=== PATIENT | female | born 1945 | race Hispanic/Latino ===

== ENCOUNTER 2021-07-05 22:11 | Emergency (ER) | payer OTHER ==
[2021-07-05] MEDS ORDERED: NALOXONE HCL 2 MG/2 ML VIAL ONE (22:40)
[2021-07-05 23:20] LABS: Protime INR 1.39
[2021-07-05 23:32] LABS: Absolute Lymphocytes (CBC) 1.4 K/uL (0.7-4.9); Basophils % 0.1 % (0-1.3); Hematocrit 39.6 % (36.0-45.0); Lymphocytes % 7.3 % (15.3-44.8); MPV 7.5 fL (7.6-11.3); RBC Red Blood Cell Count 4.24 M/uL (3.86-4.86)
[2021-07-05] MEDS ORDERED: LORazepam 2 MG/ML VIAL ONE (23:39)
[2021-07-05 23:45] LABS: Albumin 3.3 g/dL (3.4-5.0); Bilirubin Direct 0.5 mg/dL (0-0.2); Bilirubin Total 1.5 mg/dL (0.2-1.0); Magnesium 1.9 mg/dL (1.8-2.4); Potassium 3.1 mmol/L (3.5-5.1); Protein, Total 8.2 g/dL (6.4-8.2)
[2021-07-05 23:51] LABS: Urine Blood 1+ (Negative); Urine Glucose Negative (Negative); Urine Protein 2+ (Negative); Urine Specific Gravity >=1.030 (1.005-1.030)
[2021-07-05 23:52] LABS: Troponin (Emerg Dept Use Only) 18.3 ng/mL (0.0-0.045)
[2021-07-06] MEDS ORDERED: NA CHLORIDE 0.9% 1,000 ML ONE (00:10)
[2021-07-06 00:24] LABS: Arterial Blood Carboxyhemoglob 1.4 % (0-1.5); Blood Gas Oxyhemoglobin 92.7 % (94-97)
[2021-07-06] MEDS ORDERED: CEFEPIME 1 GM/VIAL ONE (00:34)
[2021-07-06] MEDS ORDERED: NA CHLORIDE 0.9% 100 ML ONE (00:34)
[2021-07-06 00:48] LABS: Barbiturates NEGATIVE (NEGATIVE); Benzodiazepines NEGATIVE (NEGATIVE); Cocaine NEGATIVE (NEGATIVE); METHAMPHETAM NEGATIVE (NEGATIVE); Methadone NEGATIVE (NEGATIVE); Opiates POSITIVE (NEGATIVE); Phencyclidine NEGATIVE (NEGATIVE); THC Cannibis NEGATIVE (NEGATIVE)
[2021-07-06 01:15] LABS: SARS-COV-2 RT PCR NEGATIVE (NEGATIVE)
[2021-07-06 01:23] LABS: Urine Amorphous Sediment 1+ /HPF (NONE SEEN); Urine Bacteria >50 /HPF (<20); Urine RBC <5 /HPF (NONE SEEN)
[2021-07-06] MEDS ORDERED: VANCOMYCIN 1 GM/VIAL ONE (01:32)
[2021-07-06] MEDS ORDERED: NA CHLORIDE 0.9% 250 ML ONE (01:33)
--- NOTE | 2021-07-06 02:03 | ER ---
Nurse's Notes [facility] Name: Gabrielle Malik Age: 76 yrs Sex: Female : 1945 Arrival Date: 07/05/2021 Time: 22:13 Bed 3 Private MD: Diagnosis: Other specified sepsis;UTI/ Urinary tract infection, site not specified;Subsequent non-ST elevation (NSTEMI) myocardial infarction Presentation: 07/05 22:10 Method Of Arrival: EMS wg 22:10 Chief complaint: Patient states: Per EMS, they were called to the home to find pt wg responsive to painful stimuli only. EMS states that saw her acting abnormal around 1830pm tonight. Unknown why EMS was not called earlier. EMS states only history of Rheumatoid Arthritis and takes morphine and hydrocodone. Per EMS, pt is normally alert and walks at home. EMS obtained a 20g IV in Right forearm and a BG of 167mg/DL. Initial Sepsis Screen: Does the patient meet any 2 criteria? RR > 20 per min. Altered Mental Status. HR > 90 bpm. Does the patient have a suspected source of infection?. Risk Assessment: Do you want to hurt yourself or someone else? Unable to obtain. Onset of symptoms was July 05, 2021 at 18:30. 22:10 Acuity: RLIEY 2 wg Triage Assessment: 22:10 General: Appears distressed, unkempt, Behavior is Responds to painful stimuli only. . wg Neuro: Level of Consciousness is lethargic, Oriented to none. Respiratory: Airway is patent Trachea midline Respiratory effort is even, unlabored, Respiratory pattern is Kussmaul Breath sounds are clear bilaterally. Historical: - Allergies: 23:50 No Known Allergies; wg - Home Meds: 23:50 Morphine Oral [Active]; Hydrocodone-Acetaminophen Oral [Active]; wg - PMHx: 23:50 Rheumatoid arthritis; wg Screenin:15 Fall Risk IV access (20 points). Mental Status-. wg Assessment: 23:00 Reassessment: EMS IV was lost shortly after arrival to ED. Attempts made to secure a wg peripheral IV and blood were unsuccessful. MARY Golden obtained an 18g midline in the right upper arm with good blood return and flush. 23:54 Reassessment: Pt arrived unresponsive only to pain. Pt seen by MICHAEL Julio upon wg arrival, Pt was given 2mg of Narcan. Pt started moving all extremities in a decorticate nature. Pt opened eyes but did not track or follow any commands. Pt moaning and moving all extremities. Pt taken to CT by RN. 23:55 Reassessment: 18fr. Pyle inserted with good urine return. No complications. Urine sent.wg 07/06 00:21 Reassessment: No changes from previously documented assessment. Patient is alert, wg oriented x 3, equal unlabored respirations, skin warm/dry/pink. At 0015 it was noted that pt has a large collection of fluid in her right upper arm. IV fluids stopped. MICHAEL Julio made aware. 00:21 Reassessment: Pt remains altered and unable to follow commands. at bedside. wg 00:50 Reassessment: 18g. Midline inserted by MARY Chun in the left arm with good blood wg return. Previous midline in Right upper arm removed. Pressure dressing applied. 00:54 Reassessment: Per MICHAEL Julio, decrease IVF to 50ml/hr. Pt received 1.2L of NS while wg in the ED. 01:25 Reassessment: Pt remains responsive to painful stimuli with inward retraction to pain. wg Respirations still Kussmaul in nature. Pt still moving all extremities. Pt's eyes remain closed. Pt had initially soiled herself of bowel and bladder prior to insertion of pyle cath. Pt put in a diaper. Pt noted to have a large dark reddened area, non open, to coccyx approx 3 1/2" in width. Pt repositioned frequently to relieve pressure. Derm:. 01:55 Reassessment: No changes from previously documented assessment. Patient and/or family wg updated on plan of care and expected duration. Pain level reassessed. Per the , he states that he found the patient on the floor Frines morning. States it was unknown if she fell or got tired and layed down. States her mental status has been declining for quite some time. States it was common for her to walk around the house with her walker until she had no energy and would lay on the floor. 02:49 Reassessment: No changes from previously documented assessment. [facility] arrived to take patient to [facility]. Report was given to [facility] and also to RN Obi at [facility] Neuro ICU. Vital Signs: 07/05 22:10 BP 178 / 130; Pulse 132; Resp 30; Temp 97.6; Pulse Ox 99% on R/A; Weight 63.5 kg; wg Height 5 ft. 5 in. (165.10 cm); 22:30 BP 179 / 127; Pulse 137; Resp 30; Pulse Ox 100% on R/A; wg 22:45 BP 161 / 91; Pulse 143; Resp 30; Pulse Ox 100% on R/A; wg 23:00 BP 161 / 107; Pulse 153; Resp 30; Pulse Ox 100% on R/A; wg 23:30 BP 137 / 100; Pulse 136; Resp 28; Pulse Ox 100% on R/A; wg 07/06 00:00 BP 134 / 107; Pulse 28; Resp 28; Pulse Ox 100% on R/A; wg 00:25 BP 154 / 60; Pulse 128; Resp 28; Pulse Ox 100% on R/A; wg 00:45 BP 139 / 80; Pulse 130; Resp 28; Pulse Ox 100% on R/A; wg 01:25 BP 127 / 84; Pulse 114; Resp 28; Pulse Ox 100% on R/A; wg 01:54 BP 147 / 49; Pulse 110; Resp 28; Temp 97.5; Pulse Ox 100% on R/A; wg 02:35 BP 119 / 49; Pulse 106; Resp 26; Pulse Ox 100% on R/A; wg 07/05 22:10 Body Mass Index 23.30 (63.50 kg, 165.10 cm) wg Vitals: 07/05 22:15 Cardiac Rhythm Assessment Sinus tach. wg ED Course: 22:13 Patient arrived in ED. mw2 22:13 Jadiel Julio PA is PHCP. cp 22:13 Sylvie Mcneil MD is Attending Physician. cp 22:15 Patient has correct armband on for positive identification. wg 22:15 audit partner on. Pulse ox on. NIBP on. wg 22:47 CT Head C Spine In Process Unspecified. EDMS 22:55 XRAY Chest (1 view) In Process Unspecified. EDMS 23:23 LFT's Sent. wg 23:23 CBC with Diff Sent. wg 23:23 Basic Metabolic Panel Sent. wg 23:43 Edgar Rick, RN is Primary Nurse. wg 23:50 Triage completed. wg 23:50 Arm band placed on. wg 07/06 00:00 Inserted saline lock: 18 gauge in left upper arm, using aseptic technique. wg 00:29 Influenza Screen (a \\T\\ B) Sent. wg 00:29 COVID-19 : Document "Date of Symptom Onset" if Symptomatic. Sent. wg 01:08 CT Chest, Abdomen, Pelvis - W/Contrast In Process Unspecified. EDMS 01:36 initiated a transfer with Elizabeth from [facility] [place]. [facility] denied due mw2 to capacity. 01:41 initiated a transfer with Tiffany from [facility]. mw2 01:43 initiated a transfer with Xiomara from [facility] Transfer Center. mw2 02:00 No provider procedures requiring assistance completed. wg 02:03 administrative approval given by Xiomara Gomes/ patient has been accepted to [facility] [place] to Mikaela Roldan 8 A 801/Dr. Moran accepted the patient in transfer/ report to be called to [phone]. Administered Medications: 07/05 23:41 Discontinued: NS 0.9% 1000 ml IV at 1 bolus Per protocol; 1000 mL bolus cp 07/06 01:36 Discontinued: NS 0.9% 1000 ml IV at 50 ml/hr continuous cp 07/05 22:20 Drug: NARcan (naloxone) 2 mg Route: IVP; Infused Over: 2 mins; Site: right forearm; wg 22:49 CANCELLED (Physician Discretion): NS 0.9% 500 ml IV at bolus once cp 23:15 Drug: Ativan (LORazepam) 0.5 mg Route: IVP; Infused Over: 2 mins; Site: right upper arm;wg 23:24 Drug: NS 0.9% 1000 ml Route: IV; Rate: 1 bolus; Infused Over: 20 mins; Site: right upper arm; 07/06 00:10 Drug: NS 0.9% (30 ml/kg) 30 ml/kg Route: IV; Rate: bolus; Site: left upper arm; wg 00:30 Drug: Cefepime 1 grams Route: IVPB; Rate: 200 ml/hr; Infused Over: 30 mins; Site: left upper arm; Delivery: Primary tubing; 00:45 Drug: NS 0.9% (30 ml/kg) 1200 ml Route: IV; Rate: bolus; Site: left upper arm; 00:45 Follow up: Response: No adverse reaction; IV Status: Completed infusion; IV Intake: wg 1200ml 01:00 Drug: NS 0.9% 1000 ml Route: IV; Rate: 50 ml/hr; Site: left upper arm; 01:05 Drug: vancoMYCIN 1 grams Route: IVPB; Rate: ml/hr; Infused Over: 2 hrs; Site: left upper arm; 01:40 Drug: NS 0.9% 1000 ml Route: IV; Rate: 100 ml/hr; Site: left upper arm; 02:10 Drug: Heparin ([place] Drip) 12 units/kg/hr - (HEParin 71328 units, D5W 500 ml) {Co-Signature: zoila (Amna Maza RN).} Route: IV; Rate: calculated rate; Site: left upper arm; 02:30 Drug: Heparin (OH-Bolus with thrombolytic) - HEParin 60 units/kg {Co-Signature: mr2 lesly (Jose Golden RN).} Route: IVP; Site: left antecubital; Intake: 00:45 IV: 1200ml; Total: 1200ml. Outcome: 02:02 ER care complete, transfer ordered by . rosa maria 02:56 Transferred by ground EMS [facility]. to [facility], Transfer form completed. X-rays sent w/ patient. 02:57 Patient left the ED. Signatures: Dispatcher [employer] EDMS Jadiel Julio PA PA cp Antunez, Elena, RN RN ea [place], MyKena 2 Edgar Rick RN Amna Golden RN mr2 Corrections: (The following items were deleted from the chart) 07/05 23:51 23:50 Home Meds: Unable to obtain; [facility] 07/06 00:18 00:08 NS 0.9% (30 ml/kg) 30 ml/kg IV at bolus in right upper arm ea :07/05 23:50 General: Appears distressed, unkempt, Behavior is Responds to painful wg stimuli only. . 07/06 00:07/05 23:50 Neuro: Level of Consciousness is lethargic, Oriented to none [facility] 07/06 00:07/05 23:50 Respiratory: Airway is patent Trachea midline Respiratory effort is even, wg unlabored, Respiratory pattern is Kussmaul Breath sounds are clear bilaterally. 07/06 00:31 09 23:58 Reassessment: EMS IV was lost shortly after arrival to ED. Attempts made to wg secure a peripheral IV and blood were unsuccessful. MARY Golden obtained an 18g midline in the right upper arm with good blood return and flush. 07/06 05: 01:55 Reassessment: No changes from previously documented assessment. Patient and/or wg family updated on plan of care and expected duration. Pain level reassessed. Patient is alert, oriented x 3, equal unlabored respirations, skin warm/dry/pink. Per the , he states that he found the patient on the floor Friday morning. States it was unknown if she fell or got tired and layed down. States her mental status has been declining for quite some time. States it was common for her to walk around the house with her walker until she had no energy and would lay on the floor. Patient states symptoms have not improved. : 02:49 Reassessment: No changes from previously documented assessment. Patient is alert, wg oriented x 3, equal unlabored respirations, skin warm/dry/pink. [facility] arrived to take patient to [facility]. Report was given to [facility] and also to RN Obi at [facility] Neuro ICU. Patient states symptoms have not improved. : 00:21 Reassessment: Pt remains altered and unable to follow commands. at bedside. Patient states symptoms have not improved. 01:55 Reassessment: No changes from previously documented assessment. Patient and/or wg family updated on plan of care and expected duration. Pain level reassessed. Per the , he states that he found the patient on the floor Friday morning. States it was unknown if she fell or got tired and layed down. States her mental status has been declining for quite some time. States it was common for her to walk around the house with her walker until she had no energy and would lay on the floor. Patient states symptoms have not improved. 02:49 Reassessment: No changes from previously documented assessment. [facility] arrived to take patient to [facility]. Report was given to [facility] and also to RN Obi at [facility] Neuro ICU. Patient states symptoms have not improved. wg
--- NOTE | 2021-07-06 02:03 | EDPHYS ---
Physician Documentation [facility] Name: Gabrielle Malik Age: 76 yrs Sex: Female : 1945 Arrival Date: 07/05/2021 Time: 22:13 Bed 3 Private MD: ED Physician Sylvie Mcneil HPI: 07/05 22:30 This 76 yrs old Female presents to ER via Unassigned with complaints of cp Altered Mental Status. 22:30 The patient presents with decreased responsiveness. cp 22:30 Onset: The symptoms/episode began/occurred 2 day(s) ago. cp 22:30 Patient's baseline: Neuro: alert and fully oriented, Motor: no deficits, Ambulation: cp walks with assist only, uses walker, Speech: normal. 23:00 reports finding patient on ground morning of 07-04-2021 and patient being too cp weak to get up so he made bedding on floor and patient stayed on floor until morning of 07-05-2021. reports son helped patient onto couch where she remained until he called EMS this evening to bring patient to ED. Historical: - Allergies: 23:50 No Known Allergies; wg - Home Meds: 23:50 Morphine Oral [Active]; Hydrocodone-Acetaminophen Oral [Active]; wg - PMHx: 23:50 Rheumatoid arthritis; wg ROS: 22:35 Neuro: Positive for altered mental status, weakness. cp 22:35 Constitutional: Negative for fever. cp 22:35 Unable to obtain ROS due to altered mental status. Exam: 22:40 Constitutional: The patient appears non-diaphoretic, non-toxic, well developed, well cp nourished, frail. 22:40 Head/Face: Normocephalic, atraumatic. cp 22:40 Eyes: Pupils: equal, round, and reactive to light and accomodation, Conjunctiva: normal, no exudate, no injection, Sclera: no appreciated abnormality, Lids and lashes: appear normal, bilaterally. 22:40 ENT: External ear(s): are unremarkable, Ear canal(s): are normal, clear, TM's: dullness, bilaterally, Mouth: Lips: dry, Oral mucosa: dry, Posterior pharynx: Airway: no evidence of obstruction, patent. 22:40 Neck: ROM/movement: Meningeal signs: are not present, nuchal rigidity, is not appreciated. 22:40 Chest/axilla: Inspection: normal, Palpation: is normal, no crepitus, no tenderness. 22:40 Cardiovascular: Rate: tachycardic, Rhythm: regular, Edema: ankle edema, that is mild, JVD: is not appreciated. 22:40 Respiratory: the patient does not display signs of respiratory distress, Respirations: normal, no use of accessory muscles, no retractions, Breath sounds: bronchial sounds, that are mild, are heard diffusely, decreased breath sounds, are not appreciated, stridor, is not appreciated, wheezing: is not appreciated. 22:40 Abdomen/GI: Inspection: abdomen appears normal, Bowel sounds: active, all quadrants, Palpation: abdomen is soft and non-tender, in all quadrants. 22:40 Musculoskeletal/extremity: Exam is negative for decreased range of motion, deformity. 22:40 Skin: cellulitis, that is mild, on the decubitus area of back, stage 1-2 baseball size pressure ulcer. 22:40 Neuro: Mentation: responsive to pain. 23:25 ECG was reviewed by the Attending Physician. cp Vital Signs: 22:10 BP 178 / 130; Pulse 132; Resp 30; Temp 97.6; Pulse Ox 99% on R/A; Weight 63.5 kg; wg Height 5 ft. 5 in. (165.10 cm); 22:30 BP 179 / 127; Pulse 137; Resp 30; Pulse Ox 100% on R/A; wg 22:45 BP 161 / 91; Pulse 143; Resp 30; Pulse Ox 100% on R/A; wg 23:00 BP 161 / 107; Pulse 153; Resp 30; Pulse Ox 100% on R/A; wg 23:30 BP 137 / 100; Pulse 136; Resp 28; Pulse Ox 100% on R/A; wg 07/06 00:00 BP 134 / 107; Pulse 28; Resp 28; Pulse Ox 100% on R/A; wg 00:25 BP 154 / 60; Pulse 128; Resp 28; Pulse Ox 100% on R/A; wg 00:45 BP 139 / 80; Pulse 130; Resp 28; Pulse Ox 100% on R/A; wg 01:25 BP 127 / 84; Pulse 114; Resp 28; Pulse Ox 100% on R/A; wg 01:54 BP 147 / 49; Pulse 110; Resp 28; Temp 97.5; Pulse Ox 100% on R/A; 02:35 BP 119 / 49; Pulse 106; Resp 26; Pulse Ox 100% on R/A; 07/05 22:10 Body Mass Index 23.30 (63.50 kg, 165.10 cm) MDM: 07/05 22:15 Patient medically screened. 07/06 02:00 Data reviewed: vital signs, nurses notes, lab test result(s), EKG, radiologic studies, cp CT scan, plain films. 02:00 Test interpretation: by ED physician or midlevel provider: ECG, plain radiologic cp studies. 07/05 22:15 Order name: Basic Metabolic Panel 07/05 22:15 Order name: CBC with Diff 07/05 22:15 Order name: LFT's 07/05 22:15 Order name: Magnesium; Complete Time: 23:56 07/05 22:15 Order name: NT PRO-BNP; Complete Time: 23:56 07/06 00:43 Interpretation: Normal except: NT PRO-BNP 61351. 07/05 22:15 Order name: PT-INR; Complete Time: 23:35 07/05 22:15 Order name: Troponin (emerg Dept Use Only); Complete Time: 23:56 07/06 00:45 Interpretation: Abnormal: TROPED 18.30. 07/05 22:15 Order name: UA MICROSCOPIC; Complete Time: 01:26 07/05 22:15 Order name: Procalcitonin; Complete Time: 00:06 07/05 22:15 Order name: Lactate; Complete Time: 23:46 07/05 22:15 Order name: Basic Metabolic Panel; Complete Time: 23:56 EDMS 07/06 00:45 Interpretation: Normal except: K 3.1; CO2 19; GLUC 151; BUN 34; CRE 1.42; GFR 36. 07/05 22:15 Order name: CBC with Automated Diff; Complete Time: 23:35 EDMS 07/05 23:46 Interpretation: Normal except: WBC 19.60; PLT 465; RDW 15.7; MPV 7.5; MEGAN% 84.1; LYM% cp 7.3; NEUT A 16.5; MNA 1.7. 07/05 22:15 Order name: Liver (Hepatic) Function; Complete Time: 23:56 EDMS 07/05 23:35 Order name: UDS; Complete Time: 01:02 07/05 22:15 Order name: XRAY Chest (1 view) 07/05 22:15 Order name: CT Head C Spine 07/05 23:36 Order name: Blood Culture Adult (2) 07/05 23:38 Order name: CT Chest, Abdomen, Pelvis - W/Contrast 07/05 23:40 Order name: COVID-19 : Document "Date of Symptom Onset" if Symptomatic. 07/05 23:40 Order name: Influenza Screen (a \\T\\ B) 07/05 23:51 Order name: Urine Dipstick-Ancillary; Complete Time: 23:56 EDMS 07/06 00:44 Interpretation: Normal except: UKET 2+; UBLD 1+; UPROT 2+; U NIT Positive. 07/06 00:03 Order name: Creatine Phosphokinase; Complete Time: 00:38 EDMS 07/06 00:20 Order name: ABG; Complete Time: 00:38 07/06 01:15 Order name: COVID-19/FLU A+B; Complete Time: 01:26 EDMS 07/06 01:24 Order name: Urine Culture EDID 07/05 22:15 Order name: EKG; Complete Time: 22:16 cp 07/05 22:15 Order name: Cardiac monitoring; Complete Time: 23:23 07/05 22:15 Order name: EKG - Nurse/Tech; Complete Time: 23:23 07/05 22:15 Order name: IV Saline Lock; Complete Time: 23:23 07/05 22:15 Order name: Labs collected and sent; Complete Time: 23:23 07/05 22:15 Order name: O2 Per Protocol; Complete Time: 23:23 cp 07/05 22:15 Order name: O2 Sat Monitoring; Complete Time: 23:23 cp 07/05 22:15 Order name: Little; Complete Time: 00:30 07/05 22:15 Order name: Urine Dipstick-Ancillary (obtain specimen); Complete Time: 01:00 cp EC/30 23:25 Rate is 127 beats/min. Rhythm is regular. AR interval is normal. QRS interval is cp normal. QT interval is normal. Interpreted by me. Reviewed by me. Administered Medications: 23:41 Discontinued: NS 0.9% 1000 ml IV at 1 bolus Per protocol; 1000 mL bolus cp 07/06 01:36 Discontinued: NS 0.9% 1000 ml IV at 50 ml/hr continuous cp 07/05 22:20 Drug: NARcan (naloxone) 2 mg Route: IVP; Infused Over: 2 mins; Site: right forearm; wg 22:49 CANCELLED (Physician Discretion): NS 0.9% 500 ml IV at bolus once cp 23:15 Drug: Ativan (LORazepam) 0.5 mg Route: IVP; Infused Over: 2 mins; Site: right upper arm;wg 23:24 Drug: NS 0.9% 1000 ml Route: IV; Rate: 1 bolus; Infused Over: 20 mins; Site: right wg upper arm; 07/06 00:10 Drug: NS 0.9% (30 ml/kg) 30 ml/kg Route: IV; Rate: bolus; Site: left upper arm; wg 00:30 Drug: Cefepime 1 grams Route: IVPB; Rate: 200 ml/hr; Infused Over: 30 mins; Site: left wg upper arm; Delivery: Primary tubing; 00:45 Drug: NS 0.9% (30 ml/kg) 1200 ml Route: IV; Rate: bolus; Site: left upper arm; wg 00:45 Follow up: Response: No adverse reaction; IV Status: Completed infusion; IV Intake: wg 1200ml 01:00 Drug: NS 0.9% 1000 ml Route: IV; Rate: 50 ml/hr; Site: left upper arm; wg 01:05 Drug: vancoMYCIN 1 grams Route: IVPB; Rate: ml/hr; Infused Over: 2 hrs; Site: left upper arm; 01:40 Drug: NS 0.9% 1000 ml Route: IV; Rate: 100 ml/hr; Site: left upper arm; wg 02:10 Drug: Heparin ([place] Drip) 12 units/kg/hr - (HEParin 66426 units, D5W 500 ml) {Co-Signature: zoila Maza RN).} Route: IV; Rate: calculated rate; Site: left upper arm; 02:30 Drug: Heparin (RI-Bolus with thrombolytic) - HEParin 60 units/kg {Co-Signature: mr2 wg (Jose Golden RN).} Route: IVP; Site: left antecubital; Disposition: 02:10 Chart complete. cp Disposition Summary: 07/06/21 02:02 Transfer Ordered Transfer Location: [facility] cp Reason: Higher level of care cp Condition: Serious cp Problem: new cp Symptoms: have improved cp Accepting Physician: Doctor(07/06/21 02:57) Diagnosis - Other specified sepsis cp - UTI/ Urinary tract infection, site not specified cp - Subsequent non-ST elevation (NSTEMI) myocardial infarction cp Discharge Instructions: - Discharge Summary Sheet Forms: - Medication Reconciliation Form cp - SBAR form Addendum: 07/07/2021 13:01 Co-signature as Attending Physician, Sylvie Mcneil MD. m a2 Signatures: Dispatcher [employer] EDMike Rebolledo, LD-C SUPERVISOR OF INSTRUCTION-Cla1 Jadiel Julio PA PA cp Antunez, Elena, RN RN ea Alzahri, Mohammad, MD MD ma2 Edgar Rick RN Amna Golden RN mr2 Corrections: (The following items were deleted from the chart) 07/05 22:49 22:15 NS 0.9% 500 ml IV at bolus once ordered. cp cp 23:51 23:50 Home Meds: Unable to obtain; [facility] 07/06 00:34 07/05 23:41 CORONAVIRUS ordered. EDMS EDMS 07/06 00:34 07/05 23:41 Influenza Screen (A ordered. EDMS EDMS 07/06 02:57 02:02 Doctor [facility]
[2021-07-06] MEDS ORDERED: HEPARIN/D5W 25,000 UNIT/500 ML BAG IV ONE (02:31)
[2021-07-06] MEDS ORDERED: HEPARIN 5000 UNIT/ML 1 ML VIAL ONE (02:58)
[2021-07-06 03:02] VITALS: O2SAT 100
[2021-07-06 03:12] VITALS: TEMP 97.5
[2021-07-06 03:14] VITALS: BP 119/49
--- NOTE | 2021-07-06 07:09 | RAD REPORT ---
EXAM DESCRIPTION: RAD - Chest Single View - 07/05/2021 10:55 pm CLINICAL HISTORY: AMS COMPARISON: No comparisons FINDINGS: Lines: None. Lungs: No evidence of edema or pneumonia. Pleural: No significant pleural effusions or pneumothorax. Cardiac: The heart size is within normal limits. Bones: No acute fractures. Other: Breast prostheses. IMPRESSION: No acute cardiopulmonary disease.
--- NOTE | 2021-07-06 10:40 | EKG ---
Test Date: 2021-07-05 Test Time: 23:11:25 Truck Trailer Mechanic: ASHLEY MEASUREMENT RESULTS: Intervals: Rate: 135 IN: 112 QRSD: 64 QT: 314 QTc: 471 Barker: P: 71 IN: 112 QRS: 29 T: 171 INTERPRETIVE STATEMENTS: Sinus tachycardia and premature ventricular complexes or fusion complexes ST & T wave abnormality, consider inferior ischemia Abnormal ECG No previous ECG available for comparison Electronically Signed On 07-06-21 10:39:41 CDT by Floyd Correa
--- NOTE | 2021-07-06 15:00 | RAD REPORT ---
EXAM DESCRIPTION: CT - Chest Abdomen Pelvis W Cont - 07/06/2021 6:38 am COMPARISON: None. CLINICAL HISTORY: [facility] TECHNIQUE: CT images through the chest, abdomen, and pelvis following IV contrast. Multiplanar refor mats. Automated exposure control was utilized on this examination as a dose lowering technique. FINDINGS: CT CHEST FINDINGS: Heart and mediastinum: Heart size is normal. No lymphadenopathy. Vascular: Severe multivessel atherosclerosis. Thyroid gland: Visualized portions are normal. Lungs: A few groundglass opacities are noted in the medial right lower lobe. Airways: No filling defects. No bronchiectasis. Pleura: No pneumothorax. No significant pleural effusion. 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 CT ABDOMEN & PELVIS FINDINGS: Liver: An ill-defined hepatic hypodensity in the left liver measures 4.1 cm on series 502 image 40. Gallbladder and biliary: Cholestatic kidney. Biliary stent in place. Moderate intrahepatic biliary du ctal dilatation with the common bile duct measuring 22 mm. Pneumobilia is present. Unremarkable bilia ry tree. Pancreas: Normal. Spleen: Normal. Kidneys and adrenal glands: Normal adrenal glands. Normal kidneys Stomach and Small Bowel: The stomach and small bowel are normal. Urinary bladder: Little catheter in place. Intravesicular air is likely iatrogenic. Uterus and Adnexa: Hysterectomy. Colon and Appendix: Large stool burden with inspissated rectal stool. No evidence of appendicitis. Peritoneal cavity: No significant ascites or free air. Retroperitoneum and lymph nodes: Gastrohepatic soft tissue lesion measures 1.7 cm on series 401 image 55. Vascular: Severe multivessel atherosclerosis. Musculoskeletal and soft tissues: Soft tissues are unremarkable. Reverse S-shaped lumbar scoliosis is present. There is 9 mm left lateral subluxation of L3 on L4. Severe lumbar spondylosis is present. N o aggressive bone lesions. No compression fracture. IMPRESSION: CHEST IMPRESSION: A few groundglass opacities in the medial right lower lobe may represent atelectasis or early pneumon ia. ABDOMEN AND PELVIS IMPRESSION: 1. An ill-defined 4.1 cm left hepatic hypoenhancing region could represent biliary ductal dilatation, infection, or neoplastic change. Consider further evaluation with multiphasic CT or MRI with liver p rotocol to exclude neoplasm. 2. Biliary ductal dilatation with biliary stent in place and pneumobilia. 3. Constipation with probable rectal impaction. 4. A gastrohepatic soft tissue lesion measuring 1.7 cm is favored to represent a reactive lymph node or splenule. A metastatic lymph node is within the differential. Electronically signed by: Kevin Kent MD 07/06/2021 1:36 AM CDT Due to temporary technical issues with the PACS/Fluency reporting system, reports are being signed by the in house radiologists without review as a courtesy to insure prompt reporting. The interpreting radiologist is fully responsible for the content of the report.
--- NOTE | 2021-07-06 17:57 | RAD REPORT ---
EXAM DESCRIPTION: CT - Head C Spine Mpr Wo Con - 07/06/2021 6:39 am COMPARISON: None. CLINICAL HISTORY: [facility] TECHNIQUE: Axial images were obtained from skull base to vertex without intravenous contrast. Imag es viewed on bone and brain windows. Multiplanar reformats were performed. Automated exposure contr ol was utilized on this examination as a dose lowering technique. FINDINGS: Brain parenchyma, ventricles, dura, meninges, and extra-axial spaces: Moderate generalized cerebral and cerebellar volume loss is present. Mild hypodensities in the subcortical white matter o f both hemispheres are nonspecific but likely relate to chronic small vessel disease. No acute intrac ranial hemorrhage or abnormal extra-axial fluid collections. Vascular structures: No hyperdense arteries or veins. Calvarium, mastoid air cells, paranasal sinuses and orbits: The calvarium is normal. The mastoid air cells are clear. Visualized paranasal sinuses are unremarkable. Orbital structures are unremarkable. EXAM DESCRIPTION: CT Cervical Spine COMPARISON: None. CLINICAL HISTORY: [facility] TECHNIQUE: Axial CT images were obtained through the entire cervical spine without contrast. Sagit thor and coronal reconstructions are provided. Automated exposure control was utilized on this examina tion as a dose lowering technique. FINDINGS: Vertebrae: Vertebral statures and alignment are normal. There are degenerative changes o f the odontoid process. No acute fracture, dislocation or destructive osseous process is present. Spinal canal, foramina, and facet joints: No significant spinal canal or foraminal stenoses. No significant facet arthropathy. Paraspinous soft-tissues: Normal. Thyroid: Normal. Other Findings: Carotid atherosclerosis. IMPRESSION: HEAD IMPRESSION: 1. No acute intracranial abnormality. 2. Moderate senescent changes. C-SPINE IMPRESSION: No acute findings of the cervical spine. Electronically signed by: Kevin Kent MD 07/05/2021 11:17 PM CDT Due to temporary technical issues with the PACS/Fluency reporting system, reports are being signed by the in house radiologists without review as a courtesy to insure prompt reporting. The interpreting radiologist is fully responsible for the content of the report.
--- NOTE | 2021-07-07 11:15 | EKG ---
Test Date: 2021-07-05 Test Time: 23:11:51 Video Photographer: ASHLEY MEASUREMENT RESULTS: Intervals: Rate: 135 IA: 118 QRSD: 66 QT: 324 QTc: 486 [place]: P: 66 IA: 118 QRS: 28 T: 95 INTERPRETIVE STATEMENTS: Sinus tachycardia with premature supraventricular complexes with occasional premature ventricular complexes ST & T wave abnormality, consider inferior ischemia Abnormal ECG Compared to ECG 07/05/2021 23:11:25 Atrial premature complex(es) now present Fusion complex(es) no longer present ST (T wave) deviation still present Possible ischemia still present Electronically Signed On 07-07-21 11:13:23 CDT by Floyd Correa
--- NOTE | 2021-07-07 11:15 | EKG ---
Test Date: 2021-07-05 Test Time: 23:12:17 Legislators: ASHLEY MEASUREMENT RESULTS: Intervals: Rate: 132 IN: 122 QRSD: 68 QT: 320 QTc: 474 [place]: P: 69 IN: 122 QRS: 31 T: 119 INTERPRETIVE STATEMENTS: Sinus tachycardia Possible Left atrial enlargement ST & T wave abnormality, consider inferior ischemia Abnormal ECG Compared to ECG 07/05/2021 23:11:51 Atrial premature complex(es) no longer present Ventricular premature complex(es) no longer present ST (T wave) deviation still present Possible ischemia still present Electronically Signed On 07-07-21 11:13:21 CDT by Floyd Correa
== END 2021-07-06 02:57 | disposition short-term general hospital (02) ==
LOC: ER 22:11
DX: A41.9 Sepsis, unspecified organism (principal); N39.0 Urinary tract infection, site not specified; I21.4 Non-ST elevation (NSTEMI) myocardial infarction; Z20.822 Contact with and (suspected) exposure to COVID-19
CPT/HCPCS: 93005 ×3; 87040 ×2; 85025; 87086; 80048; 36415; 83735; 82550; 87205; 85610; 80076; 83605; 84484; 84145; 83880; 0240U; 80307; 70450; 72125; 71260; 74177; 71045; 82805; 99291; 99292; Q9967; J2310; J1644 ×2; J3370; J7050; J0692; 81003; 81015; 87088